=== PATIENT | female | born 1955 | race Caucasian/White ===

== ENCOUNTER → 2016-10-07 | Outpatient (CLI) | payer MEDICAID | LOC: FIMAGING 14:07 | PROVIDERS: ATTEND Orthopaedic Surgery | DX: Z01.818 Encounter for other preprocedural examination (principal); M16.12 Unilateral primary osteoarthritis, left hip ==

== ENCOUNTER 2016-10-18 05:27 | Inpatient (IN) | payer MEDICAID ==
[2016-10-18] MEDS ORDERED: FAMOTIDINE 20 MG TAB PO ONE (06:00)
[2016-10-18] MEDS ORDERED: ROPI/epiNEPH/KETOROLAC/morphINE JOINT COCKTAIL IU ONE (06:00)
[2016-10-18] MEDS ORDERED: TRANEXAMIC ACID 900 MG in NS 100 ML IV ONE (06:00)
[2016-10-18] MEDS ORDERED: ACETAMINOPHEN 325 MG TAB PO ONE (06:00)
[2016-10-18] MEDS ORDERED: CHLORHEXIDINE GLUC HIBICLENS 118 ML BTL TP ONE (06:00)
[2016-10-18] MEDS ORDERED: CEFAZOLIN 2 GM/DEXTR 100 ML IV ONE (06:00)
[2016-10-18] MEDS ORDERED: LR 1,000 ML IV ONE (06:12)
[2016-10-18] MEDS ORDERED: LIDOCAINE 1% 5 ML SDV ID PRN (06:12)
[2016-10-18] MEDS ORDERED: MAGNESIUM HYDROXIDE 30 ML UDCUP PO PRN (06:51)
[2016-10-18] MEDS ORDERED: METOCLOPRAMIDE 10 MG/2 ML VIAL IVP PRN (06:51)
[2016-10-18] MEDS ORDERED: LACTULOSE 20 GM/30 ML UDCUP PO PRN (06:51)
[2016-10-18] MEDS ORDERED: CYCLOBENZAPRINE 10 MG TAB PO PRN (06:51)
[2016-10-18] MEDS ORDERED: POLYETHYLENE GLYCOL 3350 17 GM PKT PO PRN (06:51)
[2016-10-18] MEDS ORDERED: PHARMACY PAIN CONSULT 1 EA MISC PRN (06:51)
[2016-10-18] MEDS ORDERED: DIPHENOXYLATE/ATROPINE LOMOTIL 1 TAB PO PRN (06:51)
[2016-10-18] MEDS ORDERED: DIAZEPAM 5 MG TAB PO PRN (06:51)
[2016-10-18] MEDS ORDERED: TEMAZEPAM 15 MG CAP PO PRN (06:51)
[2016-10-18] MEDS ORDERED: ONDANSETRON 4 MG/2 ML VIAL IVP PRN (06:51)
[2016-10-18] MEDS ORDERED: oxyCODONE IR 5 MG TAB PO PRN (06:51)
[2016-10-18] MEDS ORDERED: PROMETHAZINE HCL 25 MG SUPPR PR PRN (06:51)
[2016-10-18] MEDS ORDERED: diphenhydrAMINE 25 MG CAP PO PRN (06:51)
[2016-10-18] MEDS ORDERED: BISACODYL 10 MG SUPP PR PRN (06:51)
[2016-10-18] MEDS ORDERED: ONDANSETRON DISINTEGRATING 4 MG TAB PO PRN (06:51)
[2016-10-18] MEDS ORDERED: ceFAZolin 1 GM/5 ML SYR ONE (07:01)
[2016-10-18] MEDS ORDERED: MIDAZOLAM 2 MG/2 ML VIAL ONE (07:06)
[2016-10-18] MEDS ORDERED: fentaNYL 100 MCG/2 ML INJ ONE (07:10)
[2016-10-18] MEDS ORDERED: ONDANSETRON 4 MG/2 ML VIAL ONE (07:11)
[2016-10-18] MEDS ORDERED: PROPOFOL 200 MG/20 ML VIAL ONE (07:11)
[2016-10-18] MEDS ORDERED: LIDOCAINE 2% JELLY 5 ML TUBE ONE (07:11)
[2016-10-18] MEDS ORDERED: METOCLOPRAMIDE 10 MG/2 ML VIAL ONE (07:12)
[2016-10-18] MEDS ORDERED: PHENYLEPHRINE HCL 100 MCG/ML SYR ONE (07:52)
[2016-10-18] MEDS: SENNOSIDES/DOCUSATE SODIUM TAB PO SCH ×2 (10:44→20:48)
[2016-10-18] MEDS: ACETAMINOPHEN 325 MG TAB PO SCH ×3 (11:42→23:54)
[2016-10-18] MEDS: traMADol 50 MG TAB PO PRN ×2 (11:42→20:48)
[2016-10-18] MEDS: ceFAZolin 2 GM/DEXTROSE 100 ML IV SCH ×2 (14:01→21:44)
[2016-10-18] MEDS: LR 1,000 ML IV SCH ×2 (14:01→21:44)
[2016-10-18] MEDS: ASPIRIN 325 MG TAB PO SCH (20:48)
[2016-10-18] MEDS: FAMOTIDINE 20 MG TAB PO SCH (20:48)
[2016-10-19 05:27] LABS: HEMATOCRIT 28.3 % (38.0-47.0); HEMOGLOBIN 9.4 g/dL (12.6-16.3)
[2016-10-19] MEDS: traMADol 50 MG TAB PO PRN (05:39)
[2016-10-19] MEDS: ACETAMINOPHEN 325 MG TAB PO SCH (05:39)
[2016-10-19] MEDS ORDERED: LEVOTHYROXINE 125 MCG TAB PO SCH (06:00)
--- NOTE | 2016-10-19 07:10 | PDIAF ---
- Diagnosis Diagnosis: left hip djd Code Status: Full Code - Medication Management Discharge Medications: Medications to Continue on Transfer Levothyroxine [Synthroid 125 mcg (*)] 125 mcg PO DAILY06 10/05/16 [Last Taken 04:50] Aspirin [Aspirin 325 mg (*)] 325 mg PO DAILY #0 tab 10/19/16 [Last Taken Unknown ] Diazepam [Valium 5 MG (*)] 5 mg PO Q6HRS PRN #30 tab 10/19/16 [Last Taken Unknown] oxyCODONE IR [Oxycodone Ir (*)] 5 - 10 mg PO Q3HRS PRN #90 tab 10/19/16 [Last Taken Unknown] Discharge Medications: Refer to the Discharge Home Medication list for PRN reason. - Orders Services needed: Physical Therapy Diet Recommendation: no restrictions on diet Diet Texture: Regular Texture Diet Activity/Weight Bearing Restrictions: 50% wb left lower extremity. anterior hip precautions. daily dressing changes. may shower without bandage, no soaking. aspirin 325 mg po daily for 6 weeks. f/u at two weeks. seek attn for increasing pain, s/s infection or other focal complaints - Follow Up Care Current Providers and Referrals: Sabina Rivera PA [Primary Care Provider] -
--- NOTE | 2016-10-19 07:30 | GDS ---
[f rep st] DISCHARGE SUMMARY ADMISSION DIAGNOSIS: Left hip degenerative joint disease. DISCHARGE DIAGNOSIS: Left hip degenerative joint disease. PROCEDURE: Left total hip arthroplasty. HISTORY OF PRESENT ILLNESS: The patient is a 61-year-old woman with arthritis to her left hip. Cli nical and radiographic features are consistent with this. She has failed attempts at conservative m anagement. I have therefore recommended total hip replacement. She understood the risks, benefits, alternatives, and wished to proceed. Written consent was signed and placed in patient's chart. HOSPITAL COURSE: The patient was admitted to the hospital floor after uncomplicated total hip arthr oplasty. She tolerated the procedure well. Postoperatively, x-rays remained stable. She had no ev idence of lower extremity swelling, calf pain or tenderness. Negative Homans bilaterally. She was quickly progressed with physical therapy. At the time of discharge, she is tolerating an oral diet. Her pain was well controlled on oral medicine. She is voiding without difficulty. Her incisions are clean, dry, and intact. DISCHARGE ACTIVITY: She is 50% weightbearing. Anterior hip precautions. Daily dressing changes. May shower without the bandage. No soaking or immersion. Follow up in 2 weeks for repeat evaluatio n. DISCHARGE MEDICATIONS: Oxycodone 5 mg 1-2 every 4 hours p.r.n. pain, Valium 5 mg p.o. q.6 hours p.r .n. spasm. /[id number]/MODL
[2016-10-19] MEDS: ASPIRIN 325 MG TAB PO SCH (08:50)
[2016-10-19] MEDS: SENNOSIDES/DOCUSATE SODIUM TAB PO SCH (08:51)
[2016-10-19] MEDS: FAMOTIDINE 20 MG TAB PO SCH (08:51)
[2016-10-19 09:39] VITALS: BP 117/69; PULSE 65; RESP 15; TEMP 97.9; O2SAT 96
== END 2016-10-19 10:56 | disposition home health service (06) | DRG 470 ==
LOC: F3E 05:27 → F3N 07:25
PROVIDERS: ADMIT Orthopaedic Surgery; ATTEND Orthopaedic Surgery
PROC: 8E0Y0CZ Robotic Assisted Procedure of Lower Extremity, Open Approach (ICD-10-PCS; principal; 2016-10-18 07:15)
PROC: 0SRB04Z Replacement of Left Hip Joint with Ceramic on Polyethylene Synthetic Substitute, Open Approach (ICD-10-PCS; principal; 2016-10-18 07:15)
DX: M16.12 Unilateral primary osteoarthritis, left hip (principal)
CPT/HCPCS: 97110-GP; 97116-GP; 97161-GP; 97165-GO; 97530-GP; J0171; J0690; J1885; J2250; J2370; J2405; J2704; J2765; J2795; J3010

== ENCOUNTER → 2016-11-01 | Outpatient (CLI) | payer MEDICAID | LOC: BMCIMAGING 09:10 | PROVIDERS: ATTEND Physician Assistant | DX: Z47.89 Encounter for other orthopedic aftercare (principal); Z96.642 Presence of left artificial hip joint; M16.11 Unilateral primary osteoarthritis, right hip ==

== ENCOUNTER → 2016-11-15 | Outpatient (CLI) | payer MEDICAID | LOC: BMCIMAGING 08:29 | PROVIDERS: ATTEND Physician Assistant | DX: Z96.642 Presence of left artificial hip joint (principal) ==

== ENCOUNTER → 2016-12-01 | Outpatient (CLI) | payer MEDICAID | LOC: BMCIMAGING 13:58 | PROVIDERS: ATTEND Orthopaedic Surgery | DX: Z47.1 Aftercare following joint replacement surgery (principal); Z96.642 Presence of left artificial hip joint ==

== ENCOUNTER → 2016-12-13 | Outpatient (CLI) | payer MEDICAID | LOC: FIMAGING 09:59 | PROVIDERS: ATTEND Orthopaedic Surgery | DX: M16.11 Unilateral primary osteoarthritis, right hip (principal) ==

== ENCOUNTER 2017-01-10 05:43 | Inpatient (IN) | payer MEDICAID ==
[2017-01-10] MEDS ORDERED: ACETAMINOPHEN 325 MG TAB PO ONE (05:55)
[2017-01-10] MEDS ORDERED: TRANEXAMIC ACID 1,900 MG in NS 100 ML IV ONE (05:55)
[2017-01-10] MEDS ORDERED: ROPIVACAINE 0.2% 80 MG, EPINEPHrine 0.2 MG, KETOROLAC TROMETHAMINE 30 MG, morphINE 10 M... IU ONE (05:55)
[2017-01-10] MEDS ORDERED: DEXAMETHASONE 4 MG/ML VIAL IVP ONE (05:55)
[2017-01-10] MEDS ORDERED: TRANEXAMIC ACID 3,000 MG in NS 50 ML IRR ONE (05:55)
[2017-01-10] MEDS ORDERED: ceFAZolin 2 GM/DEXTROSE 100 ML IV ONE (05:55)
[2017-01-10] MEDS ORDERED: LR 1,000 ML IV ONE (05:58)
[2017-01-10] MEDS ORDERED: LIDOCAINE 1% 2 ML INJ ID PRN (05:58)
[2017-01-10] MEDS ORDERED: diphenhydrAMINE 25 MG CAP PO PRN (06:21)
[2017-01-10] MEDS ORDERED: LACTULOSE 20 GM/30 ML UDCUP PO PRN (06:21)
[2017-01-10] MEDS ORDERED: TEMAZEPAM 15 MG CAP PO PRN (06:21)
[2017-01-10] MEDS ORDERED: BISACODYL 10 MG SUPP PR PRN (06:21)
[2017-01-10] MEDS ORDERED: ONDANSETRON 4 MG/2 ML VIAL IVP PRN (06:21)
[2017-01-10] MEDS ORDERED: POLYETHYLENE GLYCOL 3350 17 GM PKT PO PRN (06:21)
[2017-01-10] MEDS ORDERED: ONDANSETRON DISINTEGRATING 4 MG TAB PO PRN (06:21)
[2017-01-10] MEDS ORDERED: MAGNESIUM HYDROXIDE 30 ML UDCUP PO PRN (06:21)
[2017-01-10] MEDS ORDERED: traMADol 50 MG TAB PO PRN (06:21)
[2017-01-10] MEDS ORDERED: DIAZEPAM 5 MG TAB PO PRN (06:21)
[2017-01-10] MEDS ORDERED: PROMETHAZINE HCL 25 MG SUPPR PR PRN (06:21)
[2017-01-10] MEDS ORDERED: PHARMACY PAIN CONSULT 1 EA MISC PRN (06:21)
[2017-01-10] MEDS ORDERED: DIPHENOXYLATE/ATROPINE LOMOTIL 1 TAB PO PRN (06:21)
[2017-01-10] MEDS ORDERED: PROMETHAZINE HCL 25 MG/ML INJ IVP PRN (06:21)
[2017-01-10] MEDS ORDERED: METOCLOPRAMIDE 10 MG/2 ML VIAL IVP PRN (06:21)
--- NOTE | 2017-01-10 06:23 | PDHPUP ---
History & Physical Update H&P update statement: This history and physical update is based on an assessment of the patient which was completed after admission or registration (within 24 hours), but prior to the surgery/procedure.
[2017-01-10] MEDS ORDERED: LR 1,000 ML IV SCH (06:30)
--- NOTE | 2017-01-10 06:32 | PDIAF ---
- Diagnosis Diagnosis: right hip djd Code Status: Full Code - Medication Management Discharge Medications: Medications to Continue on Transfer Levothyroxine [Synthroid 125 mcg (*)] 125 mcg PO DAILY06 10/05/16 [Last Taken 04:50] Aspirin [Aspirin 325 mg (*)] 325 mg PO DAILY #0 tab 10/19/16 [Last Taken Unknown ] Discharge Medications: Refer to the Discharge Home Medication list for PRN reason. - Orders Services needed: Physical Therapy Diet Recommendation: no restrictions on diet Diet Texture: Regular Texture Diet Activity/Weight Bearing Restrictions: wbat. anterior hip precautions. daily dressing changes. may shower, no soaking. bakari hose x 2 weeks. aspirin 325 mg po daily. f/u at two weeks. seek attn for increasing pain, complaints, s/s infection - Follow Up Care Current Providers and Referrals: Sabina Rivera PA [Primary Care Provider] -
[2017-01-10] MEDS ORDERED: ceFAZolin 1 GM/5 ML SYR ONE (06:53)
[2017-01-10] MEDS ORDERED: MIDAZOLAM 2 MG/2 ML VIAL IVP ONE (06:57)
--- NOTE | 2017-01-10 06:57 | PDANEPAE ---
ANE Past Medical History - Cardiovascular History Hx Hypertension: No Hx Arrhythmias: No Hx Chest Pain: No Hx Coronary Artery / Peripheral Vascular Disease: No Hx CHF / Valvular Disease: No Hx Palpitations: No - Pulmonary History Hx COPD: No Hx Asthma/Reactive Airway Disease: No Hx Recent Upper Respiratory Infection: No Hx Oxygen in Use at Home: No Hx Sleep Apnea: No Sleep Apnea Screening Result - Last Documented: Negative - Neurologic History Hx Cerebrovascular Accident: No Hx Seizures: No Hx Dementia: No - Endocrine History Hx Diabetes: No Endocrine History Comment: HYPOTHYROID - Renal History Hx Renal Disorders: No - Liver History Hx Hepatic Disorders: No - Neurological & Psychiatric Hx Hx Neurological and Psychiatric Disorders: No - Cancer History Hx Cancer: No - Congenital Disorder History Hx Congenital Disorders: No - GI History Hx Gastrointestinal Disorders: No - Other Health History Other Health History: NEG - Chronic Pain History Chronic Pain: Yes (HIP PAIN) - Surgical History Prior Surgeries: TOTAL HYSTERECTOMY 2009 ANE Review of Systems - Exercise capacity METS (RN): 4 METS ANE Patient History - Allergies Allergies/Adverse Reactions: No Known Allergies Allergy (Verified 12/13/16 11:53) - Home Medications Home Medications: Levothyroxine [Synthroid 125 mcg (*)] 125 mcg PO DAILY06 10/05/16 [Last Taken 04:50] - NPO status NPO Since - Liquids (Date): 01/09/17 NPO Since - Liquids (Time): 21:00 NPO Since - Solids (Date): 01/09/17 NPO Since - Solids (Time): 19:00 - Smoking Hx Smoking Status: Former smoker - Family Anes Hx Family Hx Anesthesia Complications: NEG ANE Labs/Vital Signs - Vital Signs Blood Pressure: 149/96 Heart Rate: 77 Respiratory Rate: 16 O2 Sat (%): 93 Height: 172.72 cm Weight: 94.801 kg ANE Physical Exam - Airway Neck exam: decreased ROM Mallampati Score: Class 3 Mouth exam: normal dental/mouth exam - Pulmonary Pulmonary: no respiratory distress - Cardiovascular Cardiovascular: regular rate and rhythym - ASA Status ASA Status: II (general good health for sab)
[2017-01-10] MEDS ORDERED: PROPOFOL/EMULSION 500 MG/50 ML BOTTLE IV ONE (07:02)
[2017-01-10] MEDS ORDERED: fentaNYL 100 MCG/2 ML INJ ONE (07:02)
[2017-01-10] MEDS ORDERED: MIDAZOLAM 2 MG/2 ML VIAL ONE (07:02)
[2017-01-10] MEDS ORDERED: THROMBIN (BOVINE) 5,000 UNIT VIAL TP ONE (07:58)
[2017-01-10] MEDS ORDERED: CALCIUM CHLORIDE 1 GM/10 ML INJ ONE (07:58)
[2017-01-10] MEDS ORDERED: NALOXONE HCL 0.4 MG/ML INJ IVP PRN (08:42)
--- NOTE | 2017-01-10 08:45 | POSTANESTH ---
Post Anesthetic Evaluation Respiratory Status: Normal, Stable Level of Consciousness/Mental Status: Can Participate in Eval Pain Control: Adequate, Prn Tx Ordered Complications Possibly Related to Anesthesia: None Noted (anesthesia tolerated well pt awake and talking)
[2017-01-10] MEDS: SENNOSIDES/DOCUSATE SODIUM TAB PO SCH ×2 (11:11→20:44)
[2017-01-10] MEDS: ACETAMINOPHEN 325 MG TAB PO SCH ×3 (11:23→23:12)
[2017-01-10] MEDS: oxyCODONE IR 5 MG TAB PO PRN ×3 (13:26→20:46)
[2017-01-10] MEDS: ceFAZolin 2 GM/DEXTROSE 100 ML IV SCH ×2 (13:27→23:12)
[2017-01-10] MEDS: ASPIRIN 325 MG TAB PO SCH (20:44)
[2017-01-10] MEDS: FAMOTIDINE 20 MG TAB PO SCH (20:44)
[2017-01-11] MEDS: oxyCODONE IR 5 MG TAB PO PRN (05:48)
[2017-01-11] MEDS: ACETAMINOPHEN 325 MG TAB PO SCH (05:49)
[2017-01-11 05:59] LABS: HEMATOCRIT 32.5 % (38.0-47.0); HEMOGLOBIN 10.9 g/dL (12.6-16.3)
[2017-01-11] MEDS ORDERED: LEVOTHYROXINE 125 MCG TAB PO SCH (06:00)
--- NOTE | 2017-01-11 07:25 | PDIAF ---
- Diagnosis Diagnosis: right hip djd Code Status: Full Code - Medication Management Discharge Medications: Medications to Continue on Transfer Levothyroxine [Synthroid 125 mcg (*)] 125 mcg PO DAILY06 10/05/16 [Last Taken 04:50] Aspirin [Aspirin 325 mg (*)] 325 mg PO DAILY #0 tab 10/19/16 [Last Taken Unknown ] Aspirin [Aspirin 325 mg (*)] 325 mg PO DAILY #0 tab 01/11/17 [Last Taken Unknown ] diphenhydrAMINE [Benadryl 25 MG (*)] 25 mg PO Q4HRS PRN #0 cap 01/11/17 [Last Taken Unknown] oxyCODONE IR [Oxycodone Ir (*)] 5 - 10 mg PO Q3HRS PRN #0 tab 01/11/17 [Last Taken Unknown] Discharge Medications: Refer to the Discharge Home Medication list for PRN reason. - Orders Services needed: Physical Therapy Diet Recommendation: no restrictions on diet Diet Texture: Regular Texture Diet Activity/Weight Bearing Restrictions: wbat. anterior hip precautions. daily dressing changes. may shower, no soaking. bakari hose x 2 weeks. aspirin 325 mg po daily. f/u at two weeks. seek attn for increasing pain, complaints, s/s infection - Follow Up Care Current Providers and Referrals: Sabina Rivera PA [Primary Care Provider] -
[2017-01-11] MEDS: SENNOSIDES/DOCUSATE SODIUM TAB PO SCH (08:09)
[2017-01-11] MEDS: ASPIRIN 325 MG TAB PO SCH (08:09)
[2017-01-11] MEDS: FAMOTIDINE 20 MG TAB PO SCH (08:09)
[2017-01-11 08:28] VITALS: BP 120/82; PULSE 73; RESP 14; TEMP 99.2; O2SAT 92
--- NOTE | 2017-01-11 12:51 | GDS ---
[f rep st] DISCHARGE SUMMARY ADMIT DIAGNOSIS: Right hip degenerative joint disease. DISCHARGE DIAGNOSIS: Right hip degenerative joint disease. PROCEDURE: Right total hip arthroplasty. OPERATIVE INDICATIONS: The patient is a 62-year-old woman who is known to me for previous left tota l hip replacement. She has end-stage arthritis to her right hip. This interferes with her activiti es of daily living. She has failed all attempts at conservative management. I have, therefore, rec ommended operative intervention. I have outlined the surgical procedure, risks, benefits, alternati ves. She wishes to proceed. Written consent was signed and placed in the patient's chart. HOSPITAL COURSE: The patient was admitted to the hospital floor after uncomplicated total hip arthr oplasty. She tolerated the procedure well. At the time of discharge, she is tolerating an oral t. Her pain is well controlled on oral medicine. She is voiding without difficulty. Dressings are clean, dry, and intact. She has no calf swelling or tenderness. Negative Homans bilaterally. X-r ays are stable with anatomic alignment, and she has been cleared by Physical Therapy. DISCHARGE ACTIVITY: She is weightbearing as tolerated. Anterior hip precautions. Daily dressing c hanges. No soaking or immersion. TRICIA hose x2 weeks. MEDICATIONS: Aspirin 325 mg p.o. daily for 6 weeks, oxycodone 5 mg 1-2 every 6 hours p.r.n. pain, a nd Valium 5 mg p.o. q.8 hours p.r.n. spasm. FOLLOWUP: In 2 weeks. Seek attention for increasing redness, swelling, drainage, discharge, or oth er focal complaints. Copy requested to: JUAN DAVID Alcantara /[id number]/MUSCOGEEL
--- NOTE | 2017-01-16 08:35 | GOP ---
[f rep st] OPERATIVE REPORT DATE OF OPERATION: 01/10/2017 SURGEON: Tom Mason MD THERAPIST ASST: Raul Verde, [employer], [facility] who was a medical necessity for the entirety of the case. PREOPERATIVE DIAGNOSIS: Right hip degenerative joint disease. POSTOPERATIVE DIAGNOSIS: Right hip degenerative joint disease. PROCEDURE PERFORMED: Right total hip arthroplasty. FINDINGS: SPECIMENS: To Pathology, the bony head of the femur. INDICATIONS: The patient is a 62-year-old woman who is well known to me for previous left total hip replacement. She has end-stage arthritis to her right hip. Clinical and radiographic features are consistent with this. She has failed all attempts at conservative management. I have, therefore, recommended operative intervention. She understood the risks, benefits, alternatives, and wished to proceed. Written consent was signed and placed in patient's chart. DESCRIPTION OF PROCEDURE: The patient was identified in the preanesthesia area, the right hip clear ly demarcated as the operative site with indelible marker. She was given 2 g of Ancef intravenously en route to the operative suite. In the OR, general endotracheal anesthesia was administered and s he was positioned in the supine position. The pelvis and both lower extremities were sterilely prep ped and draped in the usual fashion. Appropriate time-out procedure was carried out. Attention was first turned to the left hemipelvis. A 2 cm incision was made over the posterior aspect of the ASI S and 3 pins were placed into the pelvis for the pelvic reference array. Attention was then turned to the right hip. An anterior approach was made. Thick subcutaneous flaps were elevated followed b y elevation of the fascia over the tensor. The tensor was retracted in a lateral direction. The un derlying vascular structures were ligated, cauterized and transected. The rectus was elevated off t he anterior capsule. Retractors were placed across the medial and superior aspect of the femoral ne ck. A T was made in the capsule. Retractors were placed into an intracapsular position. A pelvis reference check point was then placed. All bony landmarks were then referenced. A bony wedge was r emoved from the femoral neck followed by removal of the remaining femoral head. The remnants of the acetabular labrum were sharply excised. In a single-stage reaming, a 52 mm outer diameter reamer w as utilized for an opening angle of 40 degrees and anteversion of 20 degrees. A final titanium acet abular shell was then impacted and a 6.5 mm cancellous screw placed directly superior. A 0-degree X 3 liner was then placed and confirmed to be fully seated. Attention was then turned to the femur. The femur was delivered through the wound with use of extension of the table and soft tissue retract ors. The proximal canal was opened with a rongeur and serially broached to a size 6. Intraoperativ e fluoroscopy identified appropriate positioning and alignment. The trial stem was withdrawn. A si ze 6, 127 degree neck angle hip stem was then placed, and ultimately a Biolox 32 mm/+4 mm neck lengt h was selected as the final implant. This restored leg lengths. Stability profile was appropriate with full extension and external rotation to 90 degrees without any subluxation. The wound was copi ously irrigated with pulsatile lavage solution, the subcutaneous tissue closed using 0 Vicryl, the d eep capsule injected with a platelet-rich plasma solution and a joint cocktail of ropivacaine, morph ine, Toradol and epinephrine through the tissues and the subcutaneous tissue closed using 2-0 Monocr yl and the skin was stapled. Sterile dressing was applied. The patient was awakened, extubated and taken to recovery room in good and stable condition. TOTAL TOURNIQUET TIME: None. COMPLICATIONS: None. IMPLANTS: The Layla Tritanium acetabular shell, size 52 mm, 6.5 mm cancellous screw. A Trident X 3 0-degree polyethylene insert, 32 mm inner diameter. Accolade II 127-degree neck angle hip stem, s ize 6 mm. Biolox Delta ceramic head, size 32/+ 4 mm. Copy requested to: Primary Care Physician /[id number]/MODL
== END 2017-01-11 12:32 | disposition home or self-care (01) | DRG 470 ==
LOC: F3N 05:43
PROVIDERS: ADMIT Orthopaedic Surgery; ATTEND Orthopaedic Surgery
PROC: 0SR904Z Replacement of Right Hip Joint with Ceramic on Polyethylene Synthetic Substitute, Open Approach (ICD-10-PCS; principal; 2017-01-10 07:15)
DX: M16.11 Unilateral primary osteoarthritis, right hip (principal); E03.9 Hypothyroidism, unspecified; E78.5 Hyperlipidemia, unspecified; Z96.642 Presence of left artificial hip joint
CPT/HCPCS: 97110-GP; 97116-GP; 97161-GP; 97165-GO; 97530-GP; C1713; J0171; J0690; J1100; J1885; J2250; J2704; J2795; J3010

== ENCOUNTER → 2017-02-10 | Outpatient (CLI) | payer MEDICAID | LOC: BMCIMAGING 09:59 | PROVIDERS: ATTEND Physician Assistant | DX: Z47.1 Aftercare following joint replacement surgery (principal); Z96.643 Presence of artificial hip joint, bilateral ==